=== PATIENT | male | born 1995 | race African-American/Black ===

== ENCOUNTER 2017-02-16 01:42 | Emergency (ER) | payer SELFPAY ==
[~2017-02-16] VITALS: Ht 162.5 cm; Wt 71.2 kg
[2017-02-16 02:23] LABS: BILIRUBIN NEGATIVE (NEGATIVE); BLOOD TRACE-INTACT (NEGATIVE); CLARITY CLEAR (CLEAR); COLOR YELLOW (YELLOW); GLUCOSE NEGATIVE (NEGATIVE); KETONE NEGATIVE (NEGATIVE); LEUKO ESTERASE NEGATIVE (NEGATIVE); NITRITE NEGATIVE (NEGATIVE); PH 5.5 (5.0-9.0); PROTEIN NEGATIVE (NEGATIVE); SPECIFIC GRAVITY 1.015 (1.005-1.030)
[2017-02-16 02:47] LABS: BACTERIA 3+; EPITHELIAL CELLS 0-2; URINE REFLEX COMMENT YES (NO); WBC 0-2 wbc/hpf (0-5)
[2017-02-16 03:32] LABS: HEMATOCRIT 38.4 % (42.0-52.0); HEMOGLOBIN 13.2 g/dl (14.0-18.0); MEAN CELL VOLUME 88.3 fl (80.0-94.0); MEAN CORPUSCULAR HGB 30.3 pg (27.0-31.0); MEAN CORPUSCULAR HGB CONC 34.4 g/dl (33.0-37.0); MEAN PLATELET VOLUME 9.9 fl (9.6-12.3); PLATELET COUNT AUTOMATED 171 10*3/uL (130-400); RED BLOOD COUNT 4.35 10*6/uL (4.50-5.90); RED CELL DISTRI WIDTH 11.4 % (0-14.5); WHITE BLOOD COUNT 6.8 10*3/uL (4.8-10.8)
[2017-02-16 03:44] LABS: BUN 11 mg/dl (7-24); CARBON DIOXIDE 27 mmol/L (21-32); CHLORIDE 101 mmol/L (98-107); EST GLOM FILT AFRICAN AMERICAN > 60 ml/min; GLUCOSE 90 mg/dL (65-99); SODIUM 137 mmol/L (136-145)
[2017-02-16 03:56] LABS: ATYPICAL LYMPHS 5 % (0-0); EOSINOPHIL # 0.3 10*3/uL (0-0.4); EOSINOPHILS 5 % (1-4); MONOCYTE # 0.3 10*3/uL (0.1-1.0); NEUTROPHIL # 4.1 10*3/uL (2.3-7.9); NEUTROPHILS 60 % (47-73); TOTAL CELLS COUNTED 100 #CELLS
[2017-02-16 03:57] LABS: PLATELET SUFFICIENCY NORMAL (NORMAL); POLYCHROMASIA SLIGHT
[2017-02-16] MEDS ORDERED: BACTRIM DS 8001 TA1 PO (05:41)
== END 2017-02-16 06:24 | disposition home or self-care (01) ==
LOC: ED 01:42
PROVIDERS: Student in an Organized Health Care Education/Training Program
DX: N13.4 Hydroureter (principal); N39.0 Urinary tract infection, site not specified